=== PATIENT | female | born 1930 | race Caucasian/White ===

== ENCOUNTER 2016-05-19 09:36 | Outpatient (CLI) | payer MEDICARE, OTHER ==
[2015-11-07 08:39] VITALS: BP 142/68
[2016-05-19 10:03] LABS: BASOPHILS % 0.2 (0.0-1.5); LYMPHOCYTES # 1.5 # k/uL (0.6-4.0); MEAN CORPUSCULAR HEMOGLOBIN 29.8 pg (28.0-34.0); MONOCYTES # 0.4 # k/uL (0.0-0.9); MONOCYTES % 4.2 % (0.0-11.0)
[2016-05-19 10:24] LABS: eGFR (African) > 60; eGFR (Non-African) > 60
== END 2016-05-19 09:37 ==
LOC: LAB 09:36
PROVIDERS: ATTEND Family Medicine
DX: E78.5 Hyperlipidemia, unspecified (principal); Z86.2 Personal history of diseases of the blood and blood-forming organs and certain disorders involving the immune mechanism
CPT/HCPCS: 36415; 80053; 80061; 85025

== ENCOUNTER 2017-05-24 12:16 | Outpatient (CLI) | payer MEDICARE, OTHER ==
[2015-11-07 08:39] VITALS: BP 142/68
[2017-05-24 12:52] LABS: eGFR (African) > 60; eGFR (Non-African) > 60
== END 2017-05-24 12:17 ==
LOC: LABRHC 12:16
PROVIDERS: ATTEND Family Medicine
DX: E78.2 Mixed hyperlipidemia (principal); R39.11 Hesitancy of micturition
CPT/HCPCS: 80053; 80061; 87086

== ENCOUNTER 2018-06-01 15:21 | Outpatient (CLI) | payer MEDICARE, OTHER ==
[2015-11-07 08:39] VITALS: BP 142/68
[2018-06-01 15:35] LABS: MEAN CORPUSCULAR HEMOGLOBIN 31.4 pg (28.0-34.0)
[2018-06-01 16:00] LABS: eGFR (Non-African) > 60
--- NOTE | 2018-06-01 17:22 | Diagnostic Imaging Report ---
WES HUMPHREY [facility] [address] Counts Include 234 Beds At [facility] [address] 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 Right lumbar scoliosis is present. Vertebral body compression fractures are present at T4 and T5. Loss of vertebral body heights is approximately 75% at T4 and approximately 50% at T5. There is no subluxation or abnormal bone destruction. IMPRESSION Severe osteopenia. Thoracic vertebral body compression fractures. Electronically signed on Jun 01, 2018 5:06:45 PM SLAB LIFTING ENGINEER by: Santiago HENSON
--- NOTE | 2018-06-01 17:24 | Diagnostic Imaging Report ---
WES HUMPHREY [facility] [address] [facility] [address] [address] Report Submission Date: Jun 01, 2018 5:04:47 PM STUDENT ACCOUNTS MANAGER Patient Study Name: AUBREY GILL I Date: Jun 01, 2018 3:48:41 PM STUDENT ACCOUNTS MANAGER Modality Type: DX Gender: F Description: RIBS UNILAT 2 VIEWS : 32 Institution: [facility] Physician: WES HUMPHREY Left ribs HISTORY Rib pain, fall FINDINGS Examination is limited by kyphosis and scoliosis. The ribs are demineralized. Nondisplaced inferior rib fracture is present. The exact level is difficult to determine. IMPRESSION Nondisplaced inferior rib fracture. Electronically signed on Jun 01, 2018 5:04:47 PM STUDENT ACCOUNTS MANAGER by: Santiago HENSON
== END 2018-06-01 15:23 ==
LOC: LAB 15:21
PROVIDERS: ATTEND Family Medicine
DX: S22.39XA Fracture of one rib, unspecified side, initial encounter for closed fracture (principal); S22.040A Wedge compression fracture of fourth thoracic vertebra, initial encounter for closed fracture; S22.050A Wedge compression fracture of T5-T6 vertebra, initial encounter for closed fracture; W19.XXXA Unspecified fall, initial encounter; M81.0 Age-related osteoporosis without current pathological fracture; E78.2 Mixed hyperlipidemia; D64.9 Anemia, unspecified; R07.81 Pleurodynia; M54.9 Dorsalgia, unspecified; M85.88 Other specified disorders of bone density and structure, other site
CPT/HCPCS: 36415; 71100; 72072; 80053; 80061; 82306; 85027

== ENCOUNTER 2018-06-08 11:37 | Outpatient (CLI) | payer MEDICARE, OTHER ==
[2015-11-07 08:39] VITALS: BP 142/68
[2018-06-08 12:31] LABS: APPEARANCE,URINE CLEAR (CLEAR); COLOR,URINE YELLOW (YELLOW)
[2018-06-08 12:32] LABS: OCCULT BLOOD,URINE NEGATIVE (NEGATIVE)
== END 2018-06-08 11:40 ==
LOC: LAB 11:37
PROVIDERS: ATTEND Family Medicine
DX: R41.82 Altered mental status, unspecified (principal)
CPT/HCPCS: 81002; 87086

== ENCOUNTER 2018-06-10 14:52 | Outpatient (CLI) | payer MEDICARE, OTHER ==
[2015-11-07 08:39] VITALS: BP 142/68
[2018-06-10 15:12] LABS: MEAN CORPUSCULAR HEMOGLOBIN 31.3 pg (28.0-34.0)
[2018-06-10 15:13] LABS: BASOPHILS % 0.8 (0.0-1.5); MONOCYTES % 6.5 % (0.0-11.0); NEUTROPHILS # 8.2 # k/uL (1.4-7.7)
[2018-06-10 15:32] LABS: eGFR (Non-African) > 60
--- NOTE | 2018-06-10 16:48 | Diagnostic Imaging Report ---
WES HUMPHREY [facility] [address] [facility] [address] [place], [place]. [address] Report Submission Date: Jun 10, 2018 3:54:41 PM JEWEL Patient Study Name: AUBREY GILL I Date: Jun 10, 2018 3:21:41 PM VALET ATTENDANT Modality Type: CT\SR Gender: F Description: CT BRAIN W/O CONTRAST : 34 Institution: [facility] Physician: WES HUMPHREY CT BRAIN WITHOUT CONTRAST HISTORY: Fell several weeks ago with confusion TECHNIQUE: Axial images were obtained from the skullbase to the vertex without IV contrast. FINDINGS: The ventricular system, basilar cisterns and cortical sulci are prominent compatible with age-related cortical volume loss. Patchy areas of periventricular to subcortical white matter lucency are present consistent with moderate small vessel ischemic disease. There is no positive mass effect or intra/extra-axial hemorrhage. Visualized paranasal sinuses and mastoid air cells are clear. The calvarium is intact. IMPRESSION: Age-related cortical volume loss with moderate small vessel ischemic disease. No acute intracranial abnormality. Electronically signed on Jun 10, 2018 3:54:41 PM VALET ATTENDANT by: Nicolasa HENSON
== END 2018-06-10 15:00 ==
LOC: RAD 14:52
PROVIDERS: ATTEND Family Medicine
DX: R41.0 Disorientation, unspecified (principal)
CPT/HCPCS: 36415; 70450; 80053; 84443; 85025

== ENCOUNTER 2018-08-04 10:10 | Outpatient (CLI) | payer MEDICARE, OTHER ==
[2015-11-07 08:39] VITALS: BP 142/68
[2018-08-04 10:42] LABS: APPEARANCE,URINE CLEAR (CLEAR); COLOR,URINE YELLOW (YELLOW); OCCULT BLOOD,URINE NEGATIVE (NEGATIVE)
[2018-08-04 10:45] LABS: EOSINOPHILS % 1.7 % (0.0-6.8); MONOCYTES % 6.7 % (0.0-11.0); NEUTROPHILS # 7.8 # k/uL (1.4-7.7)
[2018-08-04 11:10] LABS: eGFR (Non-African) > 60
== END 2018-08-04 10:12 ==
LOC: LAB 10:10
PROVIDERS: ATTEND Family Medicine
DX: R44.3 Hallucinations, unspecified (principal); R41.0 Disorientation, unspecified
CPT/HCPCS: 36415; 80053; 81002; 84443; 85025